=== PATIENT | female | born 1965 | race Caucasian/White ===

== ENCOUNTER 2022-12-07 12:48 | Emergency (ER) | payer OTHER ==
[2022-12-07 13:13] VITALS: BP 94/59; PULSE 74; RESP 18; TEMP 97.6; BMI 23.6
== END 2022-12-07 14:02 | disposition home or self-care (01) ==
LOC: FER 12:48
PROC: 0HQGXZZ Repair Left Hand Skin, External Approach (ICD-10-PCS; principal; 2022-12-07)
DX: S61.211A Laceration without foreign body of left index finger without damage to nail, initial encounter (principal); W26.0XXA Contact with knife, initial encounter
CPT/HCPCS: 99282-25